=== PATIENT | female | born 1990 | race Caucasian/White ===

== ENCOUNTER 2018-01-26 17:49 | Emergency (ER) | payer OTHER ==
[2018-01-26 18:02] VITALS: BP 115/60; PULSE 90; TEMP 98.5; BMI 26.1
--- NOTE | 2018-01-26 18:02 | PDOC ---
Rapid Medical Evaluation Time Seen by Provider: 01/26/18 17:58 Medical Evaluation: Allergies Allergy/AdvReac Type Severity Reaction Status Date / Time aspirin Allergy Intermediate Itching Verified 01/26/18 17:58 01/26/18 17:59 I have performed a brief in-person evaluation of this patient. The patient presents with a chief complaint of:sore throat w/ hoarseness x several days. Currently on amoxicillin for dental pain Pertinent physical exam findings:stable I have ordered the following:nothing The patient will proceed to the ED for further evaluation. Discharge Disposition - Diagnosis Sore throat - Referrals - Patient Instructions - Post Discharge Activity
--- NOTE | 2018-01-26 18:45 | PDOC ---
History of Present Illness - General History Source: Patient Exam Limitations: No Limitations - History of Present Illness Initial Comments: 01/26/18 18:59 The patient is a 28 year old female with no significant PMH who presents to the emergency department with a sore throat and hoarseness for the past week. Patient states the sore throat makes it difficult for her to swallow and eat. Patient reports taking motrin several days ago with minimal relief. Patient is also drinking teas at home with no improvement of her symptoms. Patient is currently on amoxicillin for dental pain. The patient denies chest pain, shortness of breath, headache and dizziness. Denies fever, chills, nausea, vomit, diarrhea and constipation. Denies dysuria, frequency, urgency and hematuria. Allergies: NKA Past surgical history: None reported. Social history: No reported alcohol, drug or cigarette use. <Sandra Mehta - Last Filed: 01/26/18 19:12> <Brandy Ortiz - Last Filed: 01/28/18 09:03> - General Chief Complaint: Sore Throat Stated Complaint: SORE THROAT Time Seen by Provider: 01/26/18 17:58 Past History <Sandra Mehta - Last Filed: 01/26/18 19:12> - Past Medical History Asthma: No Cancer: No Cardiac Disorders: No COPD: No Diabetes: No HTN: No Seizures: No Thyroid Disease: No - Suicide/Smoking/Psychosocial Hx Smoking History: Never smoked Have you smoked in the past 12 months: No Hx Alcohol Use: No Drug/Substance Use Hx: No Hx Substance Use Treatment: No <Brandy Ortiz - Last Filed: 01/28/18 09:03> - Past Medical History Allergies/Adverse Reactions: Allergies Allergy/AdvReac Type Severity Reaction Status Date / Time aspirin Allergy Intermediate Itching Verified 01/26/18 17:58 Home Medications: Ambulatory Orders Amoxicillin - [Amoxicillin 500mg Capsule -] 500 mg PO TID 01/26/18 Ibuprofen 800 mg PO TID #30 tablet 01/26/18 Review of Systems - Review of Systems Able to Perform ROS?: Yes Comments:: 01/26/18 18:59 ADULT ROS GENERAL/CONSTITUTIONAL: No fever or chills. No weakness. HEAD, EYES, EARS, NOSE AND THROAT: No change in vision. No ear pain or discharge. (+) sore throat. CARDIOVASCULAR: No chest pain or shortness of breath. RESPIRATORY: No cough, wheezing, or hemoptysis. GASTROINTESTINAL: No nausea, vomiting, diarrhea or constipation. GENITOURINARY: No dysuria, frequency, or change in urination. MUSCULOSKELETAL: No joint or muscle swelling or pain. No neck or back pain. SKIN: No rash NEUROLOGIC: No headache, vertigo, loss of consciousness, or change in strength/ sensation. ENDOCRINE: No increased thirst. No abnormal weight change. HEMATOLOGIC/LYMPHATIC: No anemia, easy bleeding, or history of blood clots. ALLERGIC/IMMUNOLOGIC: No hives or skin allergy. <Sandra Mehta - Last Filed: 01/26/18 19:12> *Physical Exam - Vital Signs Last Vital Signs Temp Pulse Resp BP Pulse Ox 98.5 F 90 17 115/60 100 01/26/18 18:00 01/26/18 18:00 01/26/18 18:00 01/26/18 18:00 01/26/18 18:00 - Physical Exam Comments: 01/26/18 19:00 ADULT EXAM GENERAL: Awake, alert, and fully oriented, in no acute distress HEAD: No signs of trauma EYES: PERRLA, EOMI, sclera anicteric, conjunctiva clear ENT: Auricles normal inspection, hearing grossly normal, nares patent. Moist mucosa. (+) Throat is erythematous. No tonsils s/p tonsillectomy. Uvula is midline. NECK: Normal ROM, supple, no lymphadenopathy, JVD, or masses LUNGS: Breath sounds equal, clear to auscultation bilaterally. No wheezes, and no crackles HEART: Regular rate and rhythm, normal S1 and S2, no murmurs, rubs or gallops ABDOMEN: Soft, nontender, normoactive bowel sounds. No guarding, no rebound. No masses EXTREMITIES: Normal range of motion, no edema. No clubbing or cyanosis. No cords, erythema, or tenderness NEUROLOGICAL: Cranial nerves II through XII grossly intact. Normal speech, normal gait SKIN: Warm, Dry, normal turgor, no rashes or lesions noted. <Sandra Mehta - Last Filed: 01/26/18 19:12> - Vital Signs Last Vital Signs Temp Pulse Resp BP Pulse Ox 98.5 F 90 17 115/60 100 10/22/18 18:00 01/26/18 18:00 01/26/18 18:00 01/26/18 18:00 01/26/18 18:00 <Brandy Ortiz - Last Filed: 01/28/18 09:03> Medical Decision Making - Medical Decision Making 01/26/18 19:01 A portion of this note was documented by scribe services under my direction. I have reviewed the details of the note, within reason, and agree with the documentation with the following case summary and management plan written by me. Pt is a 28 y/o F who presents to the ED with 1 week of throat pain and hoarseness. Pt afebrile. -Exam with erythema posteriorly to the oropharynx. Tonsils 0+ in size. Uvula midline -Pt currently taking amoxicillin for dental pain. Would cover a theoretical strep throat; defer rapid strep test -Dexamethasone given for pain control -Most likely a viral pharyngitis -DC home -I discussed the physical exam findings, ancillary test results and final diagnoses with the patient. I answered all of the patient's questions. The patient was satisfied with the care received and felt comfortable with the discharge plan and treatment plan. The Patient agrees to follow up with the primary care physician/specialist within 24-72 hours. Return precautions were given. <Brandy Ortiz - Last Filed: 01/28/18 09:03> *DC/Admit/Observation/Transfer - Attestations Scribe Attestion: 01/26/18 19:00 Documentation prepared by Sandra Mehta, acting as medical planner for Brandon Matthews MD. <Sandra Mehta - Last Filed: 01/26/18 19:12> - Discharge Dispostion Decision to Admit order: No <Brandy Ortiz - Last Filed: 01/28/18 09:03> Diagnosis at time of Disposition: Sore throat - Discharge Dispostion Disposition: HOME Condition at time of disposition: Stable - Prescriptions Prescriptions: Ibuprofen 800 mg PO TID #30 tablet - Referrals Referrals: David Barkley MD [Staff Physician] - - Patient Instructions Printed Discharge Instructions: DI for Pharyngitis/Tonsillopharyngitis -- Adult Additional Instructions: You have a sore throat Continue taking your amoxicillin as previous prescribed. You may take Motrin 800 mg every 8 hours as needed for pain or fever. Warm water gargles and cough drops and just may also help her symptoms. Please throw way your toothbrush 3 days into treatment to prevent reinfection. Please follow up with your primary care doctor next week. Return to emergency department if you have worsening pain, difficulty swallowing , changes in your voice, lightheadedness, dizziness, or any changes in your symptoms. - Post Discharge Activity Forms/Work/School Notes: Back to Work
[2018-01-26] MEDS ORDERED: DEXAMETHASONE LIQUID 0.5 MG/5 ML 240 ML BULK BOTTLE PO ONE (18:58)
[2018-01-26] MEDS ORDERED: DEXAMETHASONE SOD PHOSPHATE 10 MG/1 ML VIAL ONE (19:05)
== END 2018-01-26 19:15 | disposition home or self-care (01) ==
LOC: JERFT 17:49
DX: J02.9 Acute pharyngitis, unspecified (principal)
CPT/HCPCS: 99281-25

== ENCOUNTER 2018-12-24 11:35 | Emergency (ER) | payer OTHER ==
[2018-12-24 11:48] VITALS: BP 100/60; PULSE 83; TEMP 98.3; BMI 26.6
--- NOTE | 2018-12-24 12:25 | PDOC ---
History of Present Illness - General Chief Complaint: Headache Stated Complaint: HEADACHE Time Seen by Provider: 12/24/18 12:24 History Source: Patient - History of Present Illness Initial Comments: 12/24/18 13:23 Chief complaint: Headache Patient is a 28-year-old female with a history of migraines, last saw her neurologist 2 years ago who is complaining about left-sided headache since Friday, was worse earlier in the week, got better yesterday and seems to be a little worse today. Patient states this is similar and not her worst headache. Patient took ibuprofen 600 mg 2 tabs earlier this morning which did not help. No fever, vomiting or numbness GENERAL/CONSTITUTIONAL: No fever, weakness. dizziness HEAD, EYES, EARS, NOSE AND THROAT: No change in vision. No ear pain or discharge. No sore throat. CARDIOVASCULAR: No chest pain RESPIRATORY: No shortness of breath or cough GASTROINTESTINAL: No pain, nausea, vomiting, diarrhea or constipation GENITOURINARY: No dysuria MUSCULOSKELETAL: No neck or back pain SKIN: No rash NEUROLOGIC: No headache, vertigo, loss of consciousness, or loss of sensation. GENERAL: The patient is awake, alert, and fully oriented, in no acute distress. HEAD: Normal with no signs of trauma. EYES: Pupils equal, round and reactive to light, sclera anicteric, conjunctiva clear. ENT: pharynx: no erythema, no exudate, uvula midline NECK: supple CHEST: clear, nontender, rr ABD: soft, nontender BACK: no tenderness or signs of injury EXTREMITIES: Normal range of motion, no edema. NEUROLOGICAL: Normal speech, normal gait. SKIN: Warm, Dry 28-year-old female with history of migraines, with headache for most of this week, waxing and waning, not worst headache, similar to headaches in the past. Patient took ibuprofen this morning. Patient will get Reglan and fluids, be reassessed, patient looks very comfortable. Past History - Past Medical History Allergies/Adverse Reactions: Allergies Allergy/AdvReac Type Severity Reaction Status Date / Time aspirin Allergy Intermediate Itching Verified 12/24/18 11:45 Home Medications: Ambulatory Orders Amoxicillin - [Amoxicillin 500mg Capsule -] 500 mg PO TID 01/26/18 Ibuprofen 800 mg PO TID #30 tablet 01/26/18 Asthma: No Cancer: No Cardiac Disorders: No COPD: No Diabetes: No HTN: No Seizures: No Thyroid Disease: No - Immunization History Immunization Up to Date: Yes - Suicide/Smoking/Psychosocial Hx Smoking History: Never smoked Have you smoked in the past 12 months: No Hx Alcohol Use: No Drug/Substance Use Hx: No Hx Substance Use Treatment: No *Physical Exam - Vital Signs Last Vital Signs Temp Pulse Resp BP Pulse Ox 98.3 F 83 17 100/60 97 12/24/18 11:45 12/24/18 11:45 12/24/18 11:45 12/24/18 11:45 12/24/18 11:45 Medical Decision Making - Medical Decision Making 12/24/18 14:48 Patient feels better. Discussed issues, findings, results, applicable medications and treatments and follow-up. All these were understood and all questions were answered *DC/Admit/Observation/Transfer Diagnosis at time of Disposition: Headache Qualifiers: Headache type: unspecified Headache chronicity pattern: episodic headache Intractability: not intractable Qualified Code(s): R51 - Headache - Discharge Dispostion Disposition: HOME - Referrals Referrals: Shaq Raines MD [Staff Physician] - - Patient Instructions Printed Discharge Instructions: DI for Migraine Additional Instructions: tylenol 650 mg every 4 hours or motrin 600 mg every 6 hours for headache drink plenty of fluids follow up with neurologist return to the er if worse - Post Discharge Activity
[2018-12-24] MEDS ORDERED: METOCLOPRAMIDE HCL INJECTION 10 MG/2 ML VIAL IVPUSH ONE (12:47)
[2018-12-24] MEDS ORDERED: SODIUM CHLORIDE 1,000 ML IV STA (12:51)
== END 2018-12-24 14:27 | disposition home or self-care (01) ==
LOC: JERFT 11:35
PROC: 3E0337Z Introduction of Electrolytic and Water Balance Substance into Peripheral Vein, Percutaneous Approach (ICD-10-PCS; principal; 2018-12-24)
PROC: 3E033GC Introduction of Other Therapeutic Substance into Peripheral Vein, Percutaneous Approach (ICD-10-PCS; 2018-12-24)
DX: R51 Headache (principal)
CPT/HCPCS: 99281-25; J7030

== ENCOUNTER → 2021-01-18 | Day surgery (SDC) | payer OTHER | END | disposition home or self-care (01) | LOC: JRADIR 09:14 | PROVIDERS: ATTEND Family Medicine | PROC: 0G9H3ZX Drainage of Right Thyroid Gland Lobe, Percutaneous Approach, Diagnostic (ICD-10-PCS; principal; 2021-01-18) | DX: E04.1 Nontoxic single thyroid nodule (principal) | CPT/HCPCS: 10005; 76942; 88173; 88305-TC ==